=== PATIENT | female | born 1990 | race Caucasian/White ===

== ENCOUNTER 2020-04-05 13:55 | Inpatient (IN) ==
[2020-04-05 15:15] LABS: ABS Lymphocytes 1.8 10^3/ul (1.0-4.8); ABS Monocytes 0.4 10^3/ul (0-0.8); ABS Neutrophils 3.5 10^3/ul (1.5-7.7); Eosinophil % 0.2 %; Hematocrit 42 % (35-47); Hemoglobin 14.5 g/dL (12.0-16.0); Lymphocyte % 31.5 %; Mean Corpuscular HGB Conc 34 g/dL (31-36); Mean Corpuscular Hemoglobin 30 pg (27-31); Mean Corpuscular Volume 89 fL (80-97); Mean Platelet Volume 8.5 fL (7.4-10.4); Platelet Count 281 10^3/uL (150-450); Red Blood Count 4.77 10^6 /uL (3.70-4.87); Red Cell Distribution Width 12 % (10-15); White Blood Count 5.8 10^3/uL (3.5-10.8)
[2020-04-05 15:32] LABS: Urine Appearance Cloudy; Urine Bilirubin Negative (Negative); Urine Blood Negative (Negative); Urine Color Yellow; Urine Glucose Negative (Negative); Urine Ketones Negative (Negative); Urine Nitrite Negative (Negative); Urine Protein Negative (Negative); Urine Specific Gravity 1.023 (1.010-1.030); Urine Urobilinogen Negative (Negative)
[2020-04-05 15:41] LABS: Urine Benzodiazepine Screen None Detected (None Detect); Urine Cannabinoids Screen None Detected (None Detect); Urine Opiates Screen None Detected (None Detect)
[2020-04-05 15:55] LABS: ALT 11 U/L (7-52); AST 15 U/L (13-39); Albumin 4.4 g/dL (3.2-5.2); Albumin/Globulin Ratio 1.3 (1-3); Alkaline Phosphatase 65 U/L (34-104); Anion Gap 7 mmol/L (2-11); BUN/Creatinine Ratio 11.8 (8-20); Blood Urea Nitrogen 9 mg/dL (6-24); CO2 Carbon Dioxide 25 mmol/L (22-32); Calcium 9.5 mg/dL (8.6-10.3); Chloride 104 mmol/L (101-111); EGFR African American 108.1 (>60); EGFR Non-African American 89.4 (>60); Globulin 3.3 g/dL (2-4); Glucose 85 mg/dL (70-100); Potassium 4.1 mmol/L (3.5-5.0); Sodium 136 mmol/L (135-145); Total Protein 7.7 g/dL (6.4-8.9)
[2020-04-05 16:28] LABS: TSH Ultra Thyroid Stim Horm 2.56 mcIU/mL (0.34-5.60)
[2020-04-05 16:40] LABS: Acetaminophen < 15 mcg/mL; Alcohol, S < 10 mg/dL (<10); Salicylate < 2.50 mg/dL (<30)
[2020-04-05] MEDS ORDERED: CMCS:Vortioxetine 10 mg TAB (NF) PO SCH (23:00)
[2020-04-05] MEDS ORDERED: Vortioxetine 10 mg TAB (NF) PO ONE (23:45)
[2020-04-06] MEDS: Vitamin THERAPEUTIC TAB PO SCH (10:37)
[2020-04-06 11:08] LABS: HCG Pregnancy < 0.60 mIU/mL
[2020-04-06] MEDS: Lisdexamfetamine 10 mg CAP(NF) PO SCH (12:22)
[2020-04-06] MEDS: CMCS:Vortioxetine 10 mg TAB (NF) PO SCH (21:00)
[2020-04-06] MEDS ORDERED: CMCS:Vortioxetine 10 mg TAB (NF) PO SCH (21:00)
[2020-04-06] MEDS: Al Hydrox/Mg Hydrox/Simet LIQ 30 ML UDC PO PRN (22:49)
[2020-04-07 08:14] LABS: Lithium 0.24 mmol/L (0.6-1.2)
[2020-04-07] MEDS: Lisdexamfetamine 10 mg CAP(NF) PO SCH (08:55)
[2020-04-07] MEDS: Vitamin THERAPEUTIC TAB PO SCH (08:56)
[2020-04-07] MEDS: CMCS:Vortioxetine 10 mg TAB (NF) PO SCH (20:17)
[2020-04-08] MEDS: Lisdexamfetamine 10 mg CAP(NF) PO SCH (08:34)
[2020-04-08] MEDS: Vitamin THERAPEUTIC TAB PO SCH (08:34)
[2020-04-08] MEDS: CMCS:Vortioxetine 10 mg TAB (NF) PO SCH (20:01)
[2020-04-09] MEDS: Vitamin THERAPEUTIC TAB PO SCH (08:18)
[2020-04-09] MEDS: Lisdexamfetamine 10 mg CAP(NF) PO SCH (08:18)
[2020-04-09] MEDS: VILAZODONE 10 MG PO SCH (13:39)
[2020-04-09] MEDS: CMCS:Vortioxetine 10 mg TAB (NF) PO SCH (20:55)
[2020-04-10] MEDS: VILAZODONE 10 MG PO SCH (07:58)
[2020-04-10] MEDS: Vitamin THERAPEUTIC TAB PO SCH (07:58)
[2020-04-10] MEDS: CMCS:Vortioxetine 10 mg TAB (NF) PO SCH (21:35)
[2020-04-11] MEDS: Vitamin THERAPEUTIC TAB PO SCH (11:55)
[2020-04-11] MEDS: VILAZODONE 10 MG PO SCH (11:55)
[2020-04-12] MEDS: VILAZODONE 10 MG PO SCH (08:22)
[2020-04-12] MEDS: Vitamin THERAPEUTIC TAB PO SCH (08:22)
[2020-04-12] MEDS ORDERED: VILAZODONE 10 MG PO ONE (13:30)
[2020-04-13] MEDS ORDERED: VILAZODONE 10 MG PO SCH (09:00)
[2020-04-13] MEDS: Vitamin THERAPEUTIC TAB PO SCH (10:03)
[2020-04-14] MEDS: Vitamin THERAPEUTIC TAB PO SCH (09:36)
[2020-04-14] MEDS: Lisdexamfetamine 10 mg CAP(NF) PO SCH (09:37)
[2020-04-14] MEDS: CMCS:Vilazodone 10 mg TAB (NF) PO SCH (19:48)
[2020-04-15] MEDS: Vitamin THERAPEUTIC TAB PO SCH (08:06)
[2020-04-15] MEDS: Lisdexamfetamine 10 mg CAP(NF) PO SCH (08:06)
[2020-04-15] MEDS: CMCS:Vilazodone 10 mg TAB (NF) PO SCH (20:04)
[2020-04-16] MEDS: Vitamin THERAPEUTIC TAB PO SCH (07:50)
[2020-04-16] MEDS ORDERED: Lisdexamfetamine 10 mg CAP(NF) PO SCH (09:00)
[2020-04-16] MEDS: CMCS:Vilazodone 10 mg TAB (NF) PO SCH (20:28)
[2020-04-17] MEDS: Vitamin THERAPEUTIC TAB PO SCH (08:07)
[2020-04-17] MEDS ORDERED: Lisdexamfetamine 10 mg CAP(NF) PO SCH (09:00)
[2020-04-18] MEDS: CMCS:Vilazodone 10 mg TAB (NF) PO SCH (08:21)
[2020-04-18] MEDS: CMCS:Atomoxetine 40 mg CAP (NF) PO SCH (08:21)
[2020-04-18] MEDS: Vitamin THERAPEUTIC TAB PO SCH (08:22)
[2020-04-19] MEDS: CMCS:Atomoxetine 40 mg CAP (NF) PO SCH (08:08)
[2020-04-19] MEDS: Vitamin THERAPEUTIC TAB PO SCH (08:08)
[2020-04-19] MEDS: CMCS:Vilazodone 10 mg TAB (NF) PO SCH (08:08)
[2020-04-19] MEDS ORDERED: VILAZODONE 10 MG PO ONE (10:45)
[2020-04-20] MEDS: CMCS:Atomoxetine 40 mg CAP (NF) PO SCH (08:27)
[2020-04-20] MEDS: Vitamin THERAPEUTIC TAB PO SCH (08:28)
[2020-04-20 09:49] VITALS: BP 96/52
[2020-04-20] MEDS: Al Hydrox/Mg Hydrox/Simet LIQ 30 ML UDC PO PRN (12:14)
== END 2020-04-20 16:00 | disposition home or self-care (01) | DRG 754 ==
LOC: ED 13:55 → BSU 04-06 00:29
PROVIDERS: ADMIT Psychiatry & Neurology Psychiatry; ATTEND Psychiatry & Neurology Psychiatry